=== PATIENT | female | born 1970 | race Hispanic/Latino ===

== ENCOUNTER 2019-08-02 13:57 | Outpatient (RCR) | payer OTHER | END 2019-08-14 | LOC: OT 13:57 | PROVIDERS: ATTEND Orthopaedic Surgery | DX: S52.101 Unspecified fracture of upper end of right radius (principal); Z47.1 Aftercare following joint replacement surgery; M25.521 Pain in right elbow; M25.621 Stiffness of right elbow, not elsewhere classified; M25.631 Stiffness of right wrist, not elsewhere classified; R53.1 Weakness ==

== ENCOUNTER 2019-08-24 14:00 | Outpatient (RCR) | payer OTHER | END 2019-09-14 | LOC: OT 14:00 | PROVIDERS: ATTEND Orthopaedic Surgery | DX: S52.121A Displaced fracture of head of right radius, initial encounter for closed fracture (principal) ==